=== PATIENT | female | born 1985 | race Caucasian/White ===

== ENCOUNTER 2017-02-11 15:11 | Emergency (ER) | payer OTHER ==
[2017-02-11 15:16] VITALS: BP 104/64; PULSE 73; TEMP 98.4; BMI 30.8
--- NOTE | 2017-02-11 16:35 | PDOC ---
History of Present Illness - General History Source: Patient Exam Limitations: No Limitations - History of Present Illness Initial Comments: 02/11/17 17:17 The patient is a 31 year old female with history of four UTI in one month who presents to the ED with complaints of lower abdominal pain for the past couple of days. The patient states the pain radiates up her abdomen as well and is accompanied with bilateral flank pain. She reports having a doctors appointment for her symptoms tomorrow but could not wait until then. She denies any fever, chills, nausea, vomiting, diarrhea, cough, shortness of breath, chest pain or any other urinary symptoms. LMP was January 28. <Fay Hidalgo - Last Filed: 02/11/17 20:07> <Anny Penn - Last Filed: 02/11/17 20:57> - General Chief Complaint: Pain Stated Complaint: ABD PAIN Time Seen by Provider: 02/11/17 16:34 Past History <Fay Hidalgo - Last Filed: 02/11/17 20:07> - Past Medical History Anemia: No Asthma: No Cancer: No Cardiac Disorders: No CVA: No COPD: No CHF: No Dementia: No Diabetes: No GI Disorders: No Disorders: No HTN: No Hypercholesterolemia: Yes Liver Disease: No Seizures: No Thyroid Disease: Yes - Psycho/Social/Smoking Cessation Hx Anxiety: No Suicidal Ideation: No Smoking History: Never smoked Have you smoked in the past 12 months: No Information on smoking cessation initiated: No Hx Alcohol Use: No Drug/Substance Use Hx: No Hx Substance Use Treatment: No <Anny Penn - Last Filed: 02/11/17 20:57> - Past Medical History Allergies/Adverse Reactions: Allergies Allergy/AdvReac Type Severity Reaction Status Date / Time No Known Allergies Allergy Verified 02/11/17 15:17 Home Medications: Ambulatory Orders NK [No Known Home Medication] 02/11/17 Review of Systems - Review of Systems Able to Perform ROS?: Yes Comments:: 02/11/17 17:17 CONSTITUTIONAL: Absent: fever, chills, diaphoresis, generalized weakness, malaise, loss of appetite HEENT: Absent: rhinorrhea, nasal congestion, throat pain, throat swelling, difficulty swallowing, mouth swelling, ear pain, eye pain, visual Changes CARDIOVASCULAR: Absent: chest pain, syncope, palpitations, irregular heart rate, lightheadedness , peripheral edema RESPIRATORY: Absent: cough, shortness of breath, dyspnea with exertion, orthopnea, wheezing, stridor, hemoptysis GASTROINTESTINAL: Present: suprapubic pain, diffuse abdominal pain Absent: abdominal distension, nausea, vomiting, diarrhea, constipation, melena, hematochezia GENITOURINARY: Absent: dysuria, frequency, urgency, hesitancy, hematuria, flank pain, genital pain MUSCULOSKELETAL: Absent: myalgia, arthralgia, joint swelling SKIN: Absent: rash, itching, pallor HEMATOLOGIC/IMMUNOLOGIC: Absent: easy bleeding, easy bruising, lymphadenopathy, frequent infections ENDOCRINE: Absent: unexplained weight gain, unexplained weight loss, heat intolerance, cold intolerance NEUROLOGIC: Absent: headache, focal weakness or paresthesias, dizziness, unsteady gait, seizure, mental status changes, bladder or bowel incontinence PSYCHIATRIC: Absent: anxiety, depression, suicidal or homicidal ideation, hallucinations. All Other Systems: Reviewed and Negative <Fay Hidalgo - Last Filed: 02/11/17 20:07> *Physical Exam - Vital Signs Last Vital Signs Temp Pulse Resp BP Pulse Ox 98.4 F 73 18 104/64 100 02/11/17 15:13 02/11/17 15:13 02/11/17 15:13 02/11/17 15:13 02/11/17 15:13 - Physical Exam Comments: 02/11/17 17:19 GENERAL: Well developed, well nourished. Awake and alert. No acute distress. HEENT: Normocephalic, atraumatic. PERRLA, EOMI. No conjunctival pallor. Sclera are non- icteric. Moist mucous membranes. Oropharynx is clear. NECK: Supple. Full ROM. No JVD. Carotid pulses 2+ and symmetric, without bruits. No thyromegaly. No lymphadenopathy. CARDIOVASCULAR: Regular rate and rhythm. No murmurs, rubs, or gallops. Distal pulses are 2+ and symmetric. PULMONARY: No evidence of respiratory distress. Lungs clear to auscultation bilaterally. No wheezing, rales or rhonchi. ABDOMINAL: Super pubic tenderness, bilateral CVA tenderness. Soft. Non-distended. No rebound or guarding. No organomegaly. Normoactive bowel sounds. MUSCULOSKELETAL Normal range of motion at all joints. No bony deformities or tenderness. No CVA tenderness. EXTREMITIES: No cyanosis. No clubbing. No edema. No calf tenderness. SKIN: Warm and dry. Normal capillary refill. No rashes. No jaundice. NEUROLOGICAL: Alert, awake, appropriate. Cranial nerves 2-12 intact. No deficits to light touch and temperature in face, upper extremities and lower extremities. No motor deficits in the in face, upper extremities and lower extremities. Normoreflexic in the upper and lower extremities. Normal speech. Toes are down-going bilaterally. Gait is normal without ataxia. PSYCHIATRIC: Cooperative. Good eye contact. Appropriate mood and affect. <Fay Hidalgo - Last Filed: 02/11/17 20:07> - Vital Signs Last Vital Signs Temp Pulse Resp BP Pulse Ox 98.4 F 73 18 104/64 100 02/11/17 15:13 02/11/17 15:13 02/11/17 15:13 02/11/17 15:13 02/11/17 15:13 <Anny Penn - Last Filed: 02/11/17 20:57> ED Treatment Course - LABORATORY CBC & Chemistry Diagram: 02/11/17 17:15 02/11/17 17:15 - RADIOLOGY Radiograph Interpretation: 02/11/17 20:07 Bladder ultrasound as reviewed by Dr. Kraft reports small left ovarian cyst, otherwise no acute pathology. <Fay Hidalgo - Last Filed: 02/11/17 20:07> - LABORATORY CBC & Chemistry Diagram: 02/11/17 17:15 02/11/17 17:15 <Anny Penn - Last Filed: 02/11/17 20:57> Medical Decision Making - Medical Decision Making 02/11/17 16:49 31 yo female reports 4 x uti in past month -has zaria givens MD at [facility] tomorrow but lucian discomfort was too great to wait to be seen -no fever,no vomiting,no diarrhea -ROS++ suprapubic pain nonsurgical abd exam plan-UA,UC preg test,cbc comp 02/11/17 20:12 CBC and chemistries are unremarkable. Patient is not . She has no urinary tract infection. Her ultrasound showed a small left ovarian cyst. Otherwise, a normal pelvic sonogram with no evidence of ovarian torsion or acute pathology Impression pelvic pain Plan patient already has an appointment with her doctor tomorrow <Anny Penn - Last Filed: 02/11/17 20:57> *DC/Admit/Observation/Transfer - Attestations Scribe Attestion: 02/11/17 17:20 Documentation prepared by Fay Hidalgo, acting as certified ophthalmic medical technician for Anny Penn MD. <Fay Hidalgo - Last Filed: 02/11/17 20:07> <Anny Penn - Last Filed: 02/11/17 20:57> Diagnosis at time of Disposition: Abdominal pain - Discharge Dispostion Disposition: HOME Condition at time of disposition: Good - Referrals Referrals: Cosmo Ochoa [Primary Care Provider] -
[2017-02-11 17:52] LABS: BASOPHIL 1.2 % (0-2.0); EOSINOPHIL 1.3 % (0-4.5); MCH 29.3 pg (25.7-33.7); MCHC 34.8 g/dl (32.0-36.0); MEAN CELL VOLUME 84.2 fl (80-96); MEAN PLT VOLUME 8.2 fl (7.5-11.1); PLATELET COUNT 258 K/MM3 (134-434); WHITE BLOOD COUNT 9.3 K/mm3 (4.0-10.0)
[2017-02-11 17:57] LABS: URINE APPEARANCE CLEAR; URINE BILIRUBIN NEGATIVE (NEGATIVE); URINE BLOOD NEGATIVE (NEGATIVE); URINE COLOR COLORLESS; URINE GLUCOSE (UA) NEGATIVE (NEGATIVE); URINE KETONE NEGATIVE (NEGATIVE); URINE NITRITE NEGATIVE (NEGATIVE); URINE PROTEIN NEGATIVE (NEGATIVE); URINE UROBILINOGEN NEGATIVE mg/dL (0.2-1.0)
[2017-02-11 18:07] LABS: URINE LEUK ESTERASE 2+ (NEGATIVE)
[2017-02-11 18:09] LABS: ANION GAP 5 (8-16); BILIRUBIN,TOTAL 0.3 mg/dL (0.2-1.0); CALCIUM 8.8 mg/dL (8.5-10.1); CO2 29 mmol/L (21-32); CREATININE 0.6 mg/dL (0.55-1.02); GLUCOSE,RANDOM 105 mg/dL (74-106)
[2017-02-11 18:10] LABS: URINE BACTERIA RARE /hpf (NONE SEEN); URINE MUCUS RARE; URINE RBC 1 /hpf (0-3); URINE WBC 2 /hpf (3-5)
[2017-02-11 18:12] LABS: ALK PHOS 81 U/L (45-117); SGOT/AST 20 U/L (15-37); SGPT/ALT 32 U/L (12-78)
== END 2017-02-11 20:20 | disposition home or self-care (01) ==
LOC: JER 15:11
DX: R10.30 Lower abdominal pain, unspecified (principal); Z87.440 Personal history of urinary (tract) infections
CPT/HCPCS: 36415; 76856-TC; 80053; 81003; 81015; 83690; 84703; 85025; 87086; 99284-25

== ENCOUNTER 2017-03-20 11:22 | Emergency (ER) | payer OTHER ==
[2017-03-20 11:27] VITALS: BP 103/41; PULSE 72; TEMP 98.4; BMI 29.0
--- NOTE | 2017-03-20 12:07 | PDOC ---
History of Present Illness - General Chief Complaint: Injury Stated Complaint: FALL/ SWOLLEN FOOT Time Seen by Provider: 03/20/17 11:41 History Source: Patient Exam Limitations: No Limitations - History of Present Illness Initial Comments: 03/20/17 12:02 Fell on right knee and twiisted foot x 1 week ago Timing/Duration: 1 week Severity: mild Associated Symptoms: denies: fever/chills, malaise Past History - Past Medical History Allergies/Adverse Reactions: Allergies Allergy/AdvReac Type Severity Reaction Status Date / Time No Known Allergies Allergy Verified 03/20/17 11:26 Home Medications: Ambulatory Orders NK [No Known Home Medication] 02/11/17 Anemia: No Asthma: No Cancer: No Cardiac Disorders: No CVA: No COPD: No CHF: No Dementia: No Diabetes: No GI Disorders: No Disorders: No HTN: No Hypercholesterolemia: Yes Liver Disease: No Seizures: No Thyroid Disease: Yes - Psycho/Social/Smoking Cessation Hx Anxiety: No Suicidal Ideation: No Smoking History: Never smoked Have you smoked in the past 12 months: No Hx Alcohol Use: No Drug/Substance Use Hx: No Substance Use Type: None Hx Substance Use Treatment: No Review of Systems - Review of Systems Constitutional: No: Symptoms Reported, Chills, Fever HEENTM: No: Symptoms Reported Respiratory: No: Symptoms reported Musculoskeletal: Yes: Joint Pain (right knee while walking; and right foot) Integumentary: No: Bruising, Erythema Neurological: No: Symptoms reported, Numbness, Paresthesia *Physical Exam - Vital Signs Last Vital Signs Temp Pulse Resp BP Pulse Ox 98.4 F 72 20 103/41 100 03/20/17 11:24 03/20/17 11:24 03/20/17 11:24 03/20/17 11:24 03/20/17 11:24 - Physical Exam General Appearance: Yes: Appropriately Dressed. No: Apparent Distress HEENT: positive: TMs Normal, Pharynx Normal Respiratory/Chest: positive: Lungs Clear Musculoskeletal: positive: Other (right knee= FROM, non tender, no STS; no joint laxity; right foot. mild STS to prox foot; Tender to medial MTs, ankle movement normal) ED Treatment Course - RADIOLOGY Radiology Studies Ordered: Category Date Time Status FOOT-RIGHT [RAD] Stat Radiology 03/20/17 11:54 Ordered Medical Decision Making - Medical Decision Making 03/20/17 12:07 no knee xray needed; right ankle = clear; will xray foot though *DC/Admit/Observation/Transfer Diagnosis at time of Disposition: Strain of right knee Qualifiers: Encounter type: initial encounter Qualified Code(s): S86.911A - Strain of unspecified muscle(s) and tendon(s) at lower leg level, right leg, initial encounter Strain of right foot Qualifiers: Encounter type: initial encounter Qualified Code(s): S96.911A - Strain of unspecified muscle and tendon at ankle and foot level, right foot, initial encounter - Discharge Dispostion Disposition: HOME Condition at time of disposition: Stable Admit: No - Referrals Referrals: Cosmo Ochoa [Primary Care Provider] - Davide Hernández MD [Staff Physician] - - Patient Instructions Additional Instructions: wear derian as needed to ankle / foot; see Dr Hernández 1 week if knee pain no better; p advil 400mg 3 times daily
== END 2017-03-20 13:24 | disposition home or self-care (01) ==
LOC: JERFT 11:22
DX: S86.811A Strain of other muscle(s) and tendon(s) at lower leg level, right leg, initial encounter (principal); S96.811A Strain of other specified muscles and tendons at ankle and foot level, right foot, initial encounter; W19.XXXA Unspecified fall, initial encounter; Y93.89 Activity, other specified; Y92.89 Other specified places as the place of occurrence of the external cause; Y99.8 Other external cause status
CPT/HCPCS: 73630-TC-RT; 99281-25

== ENCOUNTER 2017-06-03 12:53 | Emergency (ER) | payer OTHER ==
[2017-06-03 13:00] VITALS: BP 104/51; PULSE 72; TEMP 98.7; BMI 30.9
[2017-06-03 14:38] LABS: URINE APPEARANCE CLEAR; URINE BILIRUBIN NEGATIVE (NEGATIVE); URINE BLOOD NEGATIVE (NEGATIVE); URINE COLOR LTYELLOW; URINE GLUCOSE (UA) NEGATIVE (NEGATIVE); URINE KETONE NEGATIVE (NEGATIVE); URINE NITRITE NEGATIVE (NEGATIVE); URINE PROTEIN NEGATIVE (NEGATIVE); URINE UROBILINOGEN NEGATIVE mg/dL (0.2-1.0)
[2017-06-03] MEDS ORDERED: CEPHALEXIN MONOHYDRATE 500 MG CAPSULE (UD) PO ONE (14:50)
--- NOTE | 2017-06-03 14:50 | PDOC ---
History of Present Illness - General Chief Complaint: Cold Symptoms Stated Complaint: THROAT, R/O UTI, EARACHE Time Seen by Provider: 06/03/17 14:18 History Source: Patient Exam Limitations: No Limitations - History of Present Illness Travel History: No Initial Comments: 06/03/17 14:45 Mother came for evaluation of mild nausea, bilateral flank pain, and burning/ frequency and small amount urination for the past 2 days. States is felt feverish but did not take temperature. States had UTI 2 months ago and was treated with amoxicillin. Timing/Duration: reports: getting worse, changing over time Quality: reports: mild, fullness Abdominal Pain Onset Location: reports: suprapubic, flank Alleviating Factors: improves with: None Past History - Travel Traveled outside of the country in the last 30 days: No Close contact w/someone who was outside of country & ill: No - Past Medical History Allergies/Adverse Reactions: Allergies Allergy/AdvReac Type Severity Reaction Status Date / Time No Known Allergies Allergy Verified 06/03/17 13:00 Home Medications: Ambulatory Orders Cephalexin Monohydrate [Keflex -] 500 mg PO Q8H #15 capsule 06/03/17 Anemia: No Asthma: No Cancer: No Cardiac Disorders: No CVA: No COPD: No CHF: No DVT: No Dementia: No Diabetes: No GI Disorders: No Disorders: No HTN: No Hypercholesterolemia: Yes Liver Disease: No Seizures: No Thyroid Disease: Yes - Suicide/Smoking/Psychosocial Hx Smoking History: Never smoked Have you smoked in the past 12 months: No Information on smoking cessation initiated: No Hx Alcohol Use: No Drug/Substance Use Hx: No Substance Use Type: None Hx Substance Use Treatment: No Review of Systems - Review of Systems Able to Perform ROS?: Yes Is the patient limited Irish proficient: Yes Constitutional: Yes: Symptoms Reported, See HPI, Loss of Appetite, Malaise HEENTM: Yes: Symptoms Reported, See HPI, Nose Congestion Respiratory: Yes: See HPI ABD/GI: Yes: Symptoms Reported, See HPI, Abdominal Distended, Nausea, Vomiting : Yes: Symptoms Reported, See HPI, Burning, Dysuria, Frequency. No: Hematuria All Other Systems: Reviewed and Negative *Physical Exam - Vital Signs Last Vital Signs Temp Pulse Resp BP Pulse Ox 98.7 F 72 19 104/51 99 06/03/17 12:58 06/03/17 12:58 06/03/17 12:58 06/03/17 12:58 06/03/17 12:58 - Physical Exam General Appearance: Yes: Nourished, Appropriately Dressed, Apparent Distress, Mild Distress HEENT: positive: DAGOBERTO, Normal ENT Inspection, TMs Normal, Pharynx Normal Neck: positive: Tender, Supple, Lymphadenopathy (R), Lymphadenopathy (L) Respiratory/Chest: positive: Lungs Clear, Normal Breath Sounds Cardiovascular: positive: Regular Rhythm Gastrointestinal/Abdominal: positive: Tender (mild suprapubic ), Soft, Distended. 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 Will treat with Keflex due to strong hx. *DC/Admit/Observation/Transfer Diagnosis at time of Disposition: UTI (urinary tract infection) Qualifiers: Urinary tract infection type: acute cystitis Hematuria presence: without hematuria Qualified Code(s): N30.00 - Acute cystitis without hematuria - Discharge Dispostion Disposition: HOME Condition at time of disposition: Stable - Referrals Referrals: Cosmo Ochoa [Primary Care Provider] - - Patient Instructions Printed Discharge Instructions: DI for Urinary Tract Infection (UTI) Additional Instructions: Rest, drink lots of fluids: Teas, water, soups Avoid contact with others until fevers and symptoms resolved Lots of handwashing and good hygiene Continue [id number] medications for symptomatic relief Tylenol or Motrin for fever and pain Continue all of antibiotics until completed Followup with private physician in one week for repeat urinalysis/reevaluation Return to emergency department for worsened symptoms, fevers, dehydration - Post Discharge Activity Forms/Work/School Notes: Back to Work
[2017-06-03] MEDS ORDERED: CEPHALEXIN MONOHYDRATE 500 MG CAPSULE (UD) ONE (14:54)
[2017-06-03 18:17] LABS: URINE LEUK ESTERASE TRACE (NEGATIVE)
[2017-06-03 19:15] LABS: URINE RBC 0-2 /hpf (0-3)
[2017-06-03 19:16] LABS: URINE BACTERIA FEW /hpf (NEGATIVE)
== END 2017-06-03 15:02 | disposition home or self-care (01) ==
LOC: JERFT 12:53
DX: N30.00 Acute cystitis without hematuria (principal)
CPT/HCPCS: 81003; 81015; 84703; 87086; 99281-25

== ENCOUNTER 2017-08-16 12:06 | Emergency (ER) | payer OTHER ==
[2017-08-16 12:22] VITALS: BP 106/60; PULSE 75; TEMP 97.8; BMI 31.7
--- NOTE | 2017-08-16 14:36 | PDOC ---
History of Present Illness - General Chief Complaint: Cold Symptoms Stated Complaint: FEVER, THROAT PAIN Time Seen by Provider: 08/16/17 13:25 History Source: Patient Exam Limitations: No Limitations - History of Present Illness Initial Comments: 08/16/17 14:29 Patient is a 32-year-old female, no significant medical history currently on no medication presents with sore throat, body aches, fever. Son with strep. Patient had influenza 2 weeks ago was treated for Tamiflu Past Medical History: [Denies]. Allergies: No known allergies Medications: [None] Family History: Non-contributory Social History: Denies smoking, alcohol use, or IVDU Review of Systems GENERAL/CONSTITUTIONAL: [Fever. No weakness. No weight change.] HEAD, EYES, EARS, NOSE AND THROAT: [No change in vision. No ear pain or discharge. Sore throat ] CARDIOVASCULAR: [No chest pain or shortness of breath.] RESPIRATORY: [No cough, wheezing, or hemoptysis.] GASTROINTESTINAL: [No nausea, vomiting, diarrhea or constipation. No rectal bleeding.] GENITOURINARY: [No dysuria, frequency, or change in urination.] MUSCULOSKELETAL: [No joint or muscle swelling or pain. No neck or back pain.] SKIN AND BREASTS: [No rash or easy bruising.] NEUROLOGIC: [No headache, vertigo, loss of consciousness, or loss of sensation.] PSYCHIATRIC: [No depression or anxiety.] ENDOCRINE: [No increased thirst. No abnormal weight change.] HEMATOLOGIC/LYMPHATIC: [No anemia, easy bleeding, or history of blood clots.] ALLERGIC/IMMUNOLOGIC: [No hives or skin allergy. No latex allergy.] Physical Exam: GENERAL: [The patient is awake, alert, and fully oriented, in no acute distress. ] EYES: [Pupils equal, round and reactive to light, extraocular movements intact, sclera anicteric, conjunctiva clear.] ENT: [Ears normal, nares patent, oropharynx erythematous without exudates. Moist mucous membranes. No uvula deviation] NECK: [Normal range of motion, supple without lymphadenopathy, JVD, or masses.] LUNGS: [Breath sounds equal, clear to auscultation bilaterally. No wheezes, and no crackles.] HEART: [Regular rate and rhythm, normal S1 and S2 without murmur, rub or gallop. ] ABDOMEN: [Soft, nontender, normoactive bowel sounds. No guarding, no rebound. No masses. No bruising or abrasions] MUSCULOSKELETAL: [Normal range of motion, no edema. No clubbing or cyanosis. No cords, erythema, or tenderness. No CVA Tenderness with fist.] NEUROLOGICAL: [Cranial nerves II through XII grossly intact. Normal speech, normal gait.] SKIN: [Warm, Dry, normal turgor, no rashes or lesions noted.] 08/16/17 14:37 Past History - Past Medical History Allergies/Adverse Reactions: Allergies Allergy/AdvReac Type Severity Reaction Status Date / Time No Known Allergies Allergy Verified 08/16/17 12:19 Home Medications: Ambulatory Orders Acetaminophen [Tylenol -] 325 mg PO Q4H 08/16/17 Azithromycin [Zithromax 250mg Tablets -] 250 mg PO UTDICT #6 tab 08/16/17 Ibuprofen [Motrin -] 600 mg PO QID #28 tablet 08/16/17 Anemia: No Asthma: No Cancer: No Cardiac Disorders: No CVA: No COPD: No CHF: No DVT: No Dementia: No Diabetes: No GI Disorders: No Disorders: No HTN: No Hypercholesterolemia: Yes Liver Disease: No Seizures: No Thyroid Disease: Yes - Suicide/Smoking/Psychosocial Hx Smoking History: Never smoked Have you smoked in the past 12 months: No Hx Alcohol Use: No Drug/Substance Use Hx: No Substance Use Type: None Hx Substance Use Treatment: No *Physical Exam - Vital Signs Last Vital Signs Temp Pulse Resp BP Pulse Ox 97.8 F 75 18 106/60 100 08/16/17 12:20 08/16/17 12:20 08/16/17 12:20 08/16/17 12:20 08/16/17 12:20 ED Treatment Course - ADDITIONAL ORDERS Additional order review: 08/16/17 13:22 Group A Strep Rapid Antigen - Preliminary Throat Medical Decision Making - Medical Decision Making 08/16/17 14:36 A/P : Patient here for sore throat and fever, rapid strep is negative however his son with strep a. I will discharge patient home on azithromycin, Motrin for fever, increase fluids. I discussed the physical exam findings, ancillary test results and final diagnoses with the patient. I answered all of the patient's questions. The patient was satisfied with the care received and felt comfortable with the discharge plan and treatment plan. The patient will call to arrange follow-up and will return to the Emergency Department with any new, persistent or worsening symptoms. *DC/Admit/Observation/Transfer Diagnosis at time of Disposition: Exposure to strep throat Fever Qualifiers: Fever type: unspecified Qualified Code(s): R50.9 - Fever, unspecified - Discharge Dispostion Disposition: HOME Condition at time of disposition: Stable Admit: No - Prescriptions Prescriptions: Azithromycin [Zithromax 250mg Tablets -] 250 mg PO UTDICT #6 tab Ibuprofen [Motrin -] 600 mg PO QID #28 tablet - Referrals Referrals: Cosmo Ochoa [Primary Care Provider] - - Patient Instructions - Post Discharge Activity
== END 2017-08-16 14:53 | disposition home or self-care (01) ==
LOC: JERFT 12:06
DX: J02.9 Acute pharyngitis, unspecified (principal); Z20.818 Contact with and (suspected) exposure to other bacterial communicable diseases
CPT/HCPCS: 87070; 87430; 99281-25

== ENCOUNTER 2018-03-26 09:48 | Emergency (ER) | payer OTHER ==
[2018-03-26 10:02] VITALS: BP 102/60; PULSE 73; TEMP 98.3; BMI 32.1
--- NOTE | 2018-03-26 10:27 | PDOC ---
History of Present Illness - General Chief Complaint: Cold Symptoms Stated Complaint: COLD SYMPTOMS Time Seen by Provider: 03/26/18 10:08 History Source: Patient Exam Limitations: No Limitations - History of Present Illness Initial Comments: 03/26/18 15:35 32 yr female with no PMHX presents with c/o cough sore throat, Severity: reports: mild Past History - Past Medical History Allergies/Adverse Reactions: Allergies Allergy/AdvReac Type Severity Reaction Status Date / Time No Known Allergies Allergy Verified 03/26/18 09:58 Home Medications: Ambulatory Orders Fluticasone Prop 0.05% Nasal [Flonase -] 1 - 2 spray NS DAILY #1 spray.pump Anemia: No Asthma: No Cancer: No Cardiac Disorders: No CVA: No COPD: No CHF: No DVT: No Dementia: No Diabetes: No GI Disorders: No Disorders: No HTN: No Hypercholesterolemia: Yes Liver Disease: No Seizures: No Thyroid Disease: Yes - Suicide/Smoking/Psychosocial Hx Smoking History: Never smoked Have you smoked in the past 12 months: No Hx Alcohol Use: No Drug/Substance Use Hx: No Substance Use Type: None Hx Substance Use Treatment: No Review of Systems - Review of Systems Able to Perform ROS?: Yes Is the patient limited Ivorian proficient: No Constitutional: Yes: Symptoms Reported HEENTM: Yes: Symptoms Reported Respiratory: Yes: Symptoms reported *Physical Exam - Vital Signs Last Vital Signs Temp Pulse Resp BP Pulse Ox 98.3 F 73 18 102/60 97 03/26/18 09:56 03/26/18 09:56 03/26/18 09:56 03/26/18 09:56 03/26/18 09:56 - Physical Exam General Appearance: Yes: Nourished, Appropriately Dressed HEENT: positive: EOMI, DAGOBERTO, Nasal Congestion. negative: Pharyngeal Erythema, Tonsillar Exudate, Tonsillar Erythema Neck: positive: Supple. negative: Lymphadenopathy (R), Lymphadenopathy (L) Respiratory/Chest: positive: Lungs Clear, Normal Breath Sounds. 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, Fully Oriented, Alert, Normal Mood/ Affect Medical Decision Making - Medical Decision Making 03/27/18 18:12 cc: cough sore throat children with same symptoms no fever non toxic viral syndrome, nasal congestion *DC/Admit/Observation/Transfer Diagnosis at time of Disposition: Viral upper respiratory tract infection with cough - Discharge Dispostion Disposition: HOME Condition at time of disposition: Good - Prescriptions Prescriptions: Fluticasone Prop 0.05% Nasal [Flonase -] 1 - 2 spray NS DAILY #1 spray.pump - Referrals Referrals: Paul Sanchez [Primary Care Provider] - - Patient Instructions Printed Discharge Instructions: DI for Common Cold Additional Instructions: give pleanty of fluids to drink give honey on a teaspoon three times a day for cough use over the counter VICKS vapor rub to throat chest at bedtime use the Flonase nasal spray for congestion as directed follow with your primary care doctor if any worsening symptoms or return to the ER if any worse - Post Discharge Activity
== END 2018-03-26 10:46 | disposition home or self-care (01) ==
LOC: JERFT 09:48 → JER 09:48 → JERFT 10:46
DX: J06.9 Acute upper respiratory infection, unspecified (principal); E78.00 Pure hypercholesterolemia, unspecified
CPT/HCPCS: 99281-25

== ENCOUNTER 2018-12-20 02:38 | Emergency (ER) | payer OTHER | END 2018-12-20 05:40 | disposition home or self-care (01) | LOC: JER 02:38 ==

== ENCOUNTER 2019-03-16 06:55 | Inpatient (IN) | payer OTHER ==
[2019-03-16] MEDS ORDERED: DINOPROSTONE 10 MG VAGINAL SUPPOSITORY VG ONE (19:55)
--- NOTE | 2019-03-16 20:29 | HP ---
Admitting History and Physical - Admission Chief Complaint: Abdominal pain in History of Present Illness: 33 yo , @ 40 weeks gestation, EDC 03/15/19, admitted for induction of labor. History Source: Patient Limitations to Obtaining History: No Limitations - Past Medical History ...LMP: 06/14/19 ...: Yes ...: 2 ...Para: 1 - Past Surgical History Past Surgical History: Yes: None - Smoking History Smoking history: Never smoked Have you smoked in the past 12 months: No - Alcohol/Substance Use Hx Alcohol Use: No - Social History Usual Living Arrangement: Yes: With Spouse History of Recent Travel: No Home Medications - Allergies Allergies/Adverse Reactions: Allergies Allergy/AdvReac Type Severity Reaction Status Date / Time TAMIFLU Allergy Uncoded 02/20/19 18:43 - Home Medications Home Medications: Ambulatory Orders Vit No.129/Iron/Folic [ One Daily Tablet] 1 tab PO DAILY Family Disease History - Family Disease History Family History: Unremarkable Review of Systems - Review of Systems Constitutional: reports: No Symptoms Eyes: reports: No Symptoms HENT: reports: No Symptoms Neck: reports: No Symptoms Cardiovascular: reports: No Symptoms Respiratory: reports: No Symptoms Gastrointestinal: reports: No Symptoms Genitourinary: reports: Pain Breasts: reports: No Symptoms Reported Musculoskeletal: reports: No Symptoms Integumentary: reports: No Symptoms Neurological: reports: No Symptoms Endocrine: reports: No Symptoms Psychiatric: reports: No Symptoms Pain Intensity: 3 Physical Examination Constitutional: Yes: Well Nourished Eyes: Yes: Conjunctiva Clear HENT: Yes: Atraumatic Neck: Yes: Supple Cardiovascular: Yes: Regular Rate and Rhythm Respiratory: Yes: Regular Gastrointestinal: Yes: Normal Bowel Sounds Integumentary: Yes: WNL Wound/Incision: Yes: Well Approximated Neurological: Yes: Alert, Oriented Psychiatric: Yes: Alert, Oriented Problem List - Problems (1) 40 weeks gestation of Code(s): Z3A.40 - 40 WEEKS GESTATION OF Assessment/Plan 40 weeks gestation Cervidil induction NPO Reevaluate in 12 hours or before if indicated
[2019-03-16] MEDS: ELECTROLYTE-148 SOLN 1,000 ML IV SCH (20:30)
[2019-03-16 20:48] LABS: BASO % 0.6 % (0-2.0); EOS % 0.9 % (0-4.5); HEMATOCRIT 33.8 % (32.4-45.2); HEMOGLOBIN 11.5 GM/dL (10.7-15.3); MCH 29.6 pg (25.7-33.7); MCHC 34.1 g/dl (32.0-36.0); MEAN CELL VOLUME 86.8 fl (80-96); MEAN PLT VOLUME 7.9 fl (7.5-11.1); MONO % 5.9 % (3.8-10.2); NEUT % 69.6 % (42.8-82.8); PLATELET COUNT 197 K/MM3 (134-434); RBC 3.89 M/mm3 (3.60-5.2); RDW 15.6 % (11.6-15.6); WHITE BLOOD COUNT 8.2 K/mm3 (4.0-10.0)
[2019-03-16 21:02] LABS: INR 1.05 (0.83-1.09); PROTHROMBIN TIME (PATIENT) 12.4 SEC (9.7-13.0)
[2019-03-16 21:05] LABS: ACTIVATED PTT 27.1 SECONDS (25.2-36.5)
[2019-03-16 21:22] LABS: BLOOD UREA NITROGEN 11.8 mg/dL (7-18); CREATININE 0.4 mg/dL (0.55-1.3); POTASSIUM 4.5 mmol/L (3.5-5.1)
[2019-03-16 21:31] VITALS: BMI 38.1
[2019-03-17] MEDS ORDERED: BUTORPHANOL TARTRATE 2 MG/ML VIAL IVPUSH PRN (00:36)
[2019-03-17] MEDS ORDERED: PROMETHAZINE HCL 25 MG/1 ML VIAL IVPUSH ONE (00:37)
[2019-03-17] MEDS ORDERED: BUTORPHANOL TARTRATE 1 MG/ML VIAL ONE ×2 (01:03)
[2019-03-17] MEDS ORDERED: PROMETHAZINE HCL 25 MG/1 ML VIAL ONE (01:04)
[2019-03-17] MEDS: ELECTROLYTE-148 SOLN 1,000 ML IV SCH ×3 (08:34→19:45)
[2019-03-17] MEDS ORDERED: OXYTOCIN 30 UNITS in 0.9% NS 30 UNIT/500 ML INFUS.BAG IVPB SCH (11:15)
[2019-03-17] MEDS ORDERED: OXYTOCIN 30 UNITS in 0.9% NS 30 UNIT/500 ML INFUS.BAG IVPB ONE (13:19)
--- NOTE | 2019-03-17 19:37 | PN ---
Progress Note (short form) - Note Progress Note: Patient seen and evaluated, she's lying comfortably in bed. She's status post cervidil. FHR : Reassuring [place] : + occasional contractions. VE : /-2 A/P : S/P cervidil induction Analgesia as needed Pitocin augmentation Anticipate Problem List - Problems (1) 40 weeks gestation of Code(s): Z3A.40 - 40 WEEKS GESTATION OF
[2019-03-17] MEDS ORDERED: FENTANYL/BUPIVACAINE/NS/PF - PCEA - 50 ML DISP.SYRIN EP ONE (19:38)
--- NOTE | 2019-03-17 19:41 | PN ---
Progress Note (short form) - Note Progress Note: Patient seen and evaluated, she's lying in bed c/o moderate discomfort. She's on pitocin augmentation FHR : Reassuring [place] : + occasional contractions. VE : /-2 AROM clear A/P : S/P cervidil induction Epidural anesthesia Continue pitocin augmentation Anticipate Problem List - Problems (1) 40 weeks gestation of Code(s): Z3A.40 - 40 WEEKS GESTATION OF
[2019-03-17] MEDS ORDERED: NALOXONE HCL 0.4 MG/ML VIAL IVPUSH PRN (19:53)
[2019-03-17] MEDS ORDERED: BUPIVACAINE HCL/PF 2.5 MG/ML - 30 ML VIAL IJ ONE (19:56)
[2019-03-17] MEDS ORDERED: FENTANYL/BUPIVACAINE/NS/PF - PCEA - 50 ML DISP.SYRIN EP SCH (20:00)
[2019-03-18] MEDS ORDERED: OXYTOCIN 20 UNITS in 0.9% NS 20 UNIT/1,000 ML INFUS.BAG IV ONE ×2 (02:03→03:41)
[2019-03-18] MEDS ORDERED: BENZOCAINE 28 GM HEMORRHOIDAL OINTMENT TP PRN (02:20)
[2019-03-18] MEDS ORDERED: WITCH HAZEL 50% (TUCKS) 40 PAD/JAR PAD TP PRN (02:20)
[2019-03-18] MEDS ORDERED: METHYLERGONOVINE MALEATE 0.2 MG/1 ML AMP IM PRN (02:20)
[2019-03-18] MEDS ORDERED: BISACODYL 10 MG SUPP.RECT RC PRN (02:20)
[2019-03-18] MEDS ORDERED: BENZOCAINE 20% 57 GM BOTTLE TP PRN (02:20)
--- NOTE | 2019-03-18 02:25 | PN ---
Delivery - Delivery Vaginal Delivery: Spontaneous Type of Anesthesia: Epidural Episiotomy/Laceration: Midline EBL (cc): 300 Delivery, Single - Feeding Plan Initial Plan: Elected not to breastfeed exclusively throughout hospitalization Remarks - Remarks Remarks: Normal spontaneous vaginal delivery of a live infant boy over midline episiotomy. Nose / Oropharynx suctioned @ perineum. Nuchal cord x 2 released, clamped and cut. Baby handed to nurse. Placenta expelled spontaneously intact. Episiotomy repaired with 2.0 Chromic and 2.0 Biosyn. Mother in stable condition.
[2019-03-18] MEDS ORDERED: OXYTOCIN 20 UNITS in 0.9% NS 20 UNIT/1,000 ML INFUS.BAG IV SCH (02:30)
[2019-03-18] MEDS: IBUPROFEN 600 MG TABLET (FP) PO PRN ×5 (03:15→22:22)
[2019-03-18] MEDS ORDERED: IBUPROFEN 600 MG TABLET (FP) PO ONE (03:41)
[2019-03-18] MEDS: FERROUS SO4 325 MG TABLET (FP) PO SCH ×2 (09:19→22:22)
[2019-03-18] MEDS: PRENATAL VITAMINS W/ FOLIC ACID TABLET (FP) PO SCH (09:19)
[2019-03-18] MEDS: ACETAMINOPHEN 325 MG TABLET (FP) PO PRN ×4 (09:20→22:22)
[2019-03-18] MEDS ORDERED: DIPHTH,PERTUSS(ACELL),TET 0.5 ML DISP.SYRIN IM ONE (10:00)
[2019-03-19] MEDS: ACETAMINOPHEN 325 MG TABLET (FP) PO PRN ×4 (03:00→20:44)
[2019-03-19] MEDS: IBUPROFEN 600 MG TABLET (FP) PO PRN ×4 (03:01→20:44)
--- NOTE | 2019-03-19 06:15 | PN ---
Post Progress Note - Subjective Subjective: Pt doing well. No acute events overnight per nursing Resting comfortably in bed. Type of Delivery: Vital Signs: Vital Signs Temperature 97.6 F 03/18/19 20:52 Pulse Rate 85 03/18/19 20:52 Respiratory Rate 18 03/18/19 20:52 Blood Pressure 98/63 03/18/19 20:52 O2 Sat by Pulse Oximetry (%) 100 03/18/19 01:45 Uterus: Yes: Fundus Firm Incision: Yes: Dressing dry and intact Abdomen/GI: Yes: Abdomen soft Lochia: Yes: Rubra Extremities: Yes: Calves non-tender Perineum: Yes: Episiotomy Activity: Ambulating - Labs Labs: CBC WBC 8.2 K/mm3 (4.0-10.0) 03/16/19 20:00 RBC 3.89 M/mm3 (3.60-5.2) 03/16/19 20:00 Hgb 11.5 GM/dL (10.7-15.3) 03/16/19 20:00 Hct 33.8 % (32.4-45.2) D 03/16/19 20:00 MCV 86.8 fl (80-96) 03/16/19 20:00 MCH 29.6 pg (25.7-33.7) 03/16/19 20:00 MCHC 34.1 g/dl (32.0-36.0) 03/16/19 20:00 RDW 15.6 % (11.6-15.6) 03/16/19 20:00 Plt Count 197 K/MM3 (134-434) D 03/16/19 20:00 MPV 7.9 fl (7.5-11.1) 03/16/19 20:00 Absolute Neuts (auto) 5.7 K/mm3 (1.5-8.0) 03/16/19 20:00 Neutrophils % 69.6 % (42.8-82.8) 03/16/19 20:00 Lymphocytes % 23.0 % (8-40) D 03/16/19 20:00 Monocytes % 5.9 % (3.8-10.2) 03/16/19 20:00 Eosinophils % 0.9 % (0-4.5) 03/16/19 20:00 Basophils % 0.6 % (0-2.0) 03/16/19 20:00 Nucleated RBC % 0 % (0-0) 03/16/19 20:00 Problem List - Problems (1) Vaginal delivery Code(s): O80 - ENCOUNTER FOR FULL-TERM UNCOMPLICATED DELIVERY Assessment/Plan Regular diet PO pain meds await CBC routine care
[2019-03-19] MEDS: PRENATAL VITAMINS W/ FOLIC ACID TABLET (FP) PO SCH (09:17)
[2019-03-19] MEDS: FERROUS SO4 325 MG TABLET (FP) PO SCH ×2 (09:17→23:05)
[2019-03-19 09:21] LABS: BASO % 0.8 % (0-2.0); EOS % 1.8 % (0-4.5); HEMATOCRIT 28.8 % (32.4-45.2); HEMOGLOBIN 9.8 GM/dL (10.7-15.3); LYMPH % 27.8 % (8-40); MCH 29.9 pg (25.7-33.7); MCHC 34.2 g/dl (32.0-36.0); MEAN CELL VOLUME 87.3 fl (80-96); MEAN PLT VOLUME 7.9 fl (7.5-11.1); NEUT % 65.6 % (42.8-82.8); PLATELET COUNT 172 K/MM3 (134-434); RDW 15.9 % (11.6-15.6); WHITE BLOOD COUNT 8.3 K/mm3 (4.0-10.0)
[2019-03-19] MEDS ORDERED: DIPHTH,PERTUSS(ACELL),TET 0.5 ML DISP.SYRIN IM ONE (10:00)
[2019-03-19] MEDS ORDERED: SENNOSIDES/DOCUSATE COMBO (SENNA PLUS) TABLET (UD) PO PRN (22:00)
[2019-03-20] MEDS: IBUPROFEN 600 MG TABLET (FP) PO PRN ×3 (04:58→15:48)
[2019-03-20] MEDS: ACETAMINOPHEN 325 MG TABLET (FP) PO PRN ×3 (04:59→15:48)
--- NOTE | 2019-03-20 08:36 | DS ---
Physical Exam-CHIEF EMBALMER Vital Signs: Vital Signs Temperature 98.7 F 03/19/19 22:00 Pulse Rate 84 03/19/19 22:00 Respiratory Rate 18 03/19/19 22:00 Blood Pressure 110/66 03/19/19 22:00 O2 Sat by Pulse Oximetry (%) 100 03/18/19 01:45 Constitutional: Yes: Well Nourished, No Distress Eyes: Yes: Conjunctiva Clear HENT: Yes: Normocephalic Neck: Yes: Trachea Midline Cardiovascular: Yes: Regular Rate and Rhythm Respiratory: Yes: Regular Gastrointestinal: Yes: Soft Neurological: Yes: Alert, Oriented Psychiatric: Yes: Alert, Oriented Labs: CBC, BMP 03/19/19 08:10 03/16/19 20:00 Delivery - Delivery Vaginal Delivery: Spontaneous Type of Anesthesia: Epidural Episiotomy/Laceration: Midline EBL (cc): 300 Delivery, Single - Stages of Labor Date 1st Stage Initiatied: 03/17/19 Time 1st Stage Initiated: 19:30 Date 2nd Stage Initiated: 03/18/19 Time 2nd Stage Initiated: 01:20 Date of Delivery: 03/18/19 Time of Delivery: 01:58 Time Placenta Delivered: 02:05 Placenta: Yes: Spontaneous - Condition of Healthcare Account Manager/Survey Crew Chief Present: No Gender: Male Weight: 8 lb 3 oz Position: Right, OA Total Hours ROM (Hrs/Mins): 6h28m - 1 Minute Total Score: 9 5 Minutes Total Score: 9 - [place] Feeding Plan Initial Plan: Elected not to breastfeed exclusively throughout hospitalization Discharge Summary Current Active Problems 40 weeks gestation of (Acute) Vaginal delivery (Acute) Hospital Course: Pt admitted for induction of labor on 03/16/2019. She underwent a normal on . She had an post course complicated only by anemia, she was maintained on vitamins . She was discharged home on post day 2. - Instructions - Home Medications Comprehensive Discharge Medication List: Ambulatory Orders Vit No.129/Iron/Folic [ One Daily Tablet] 1 tab PO DAILY
[2019-03-20] MEDS: PRENATAL VITAMINS W/ FOLIC ACID TABLET (FP) PO SCH (09:51)
[2019-03-20] MEDS: FERROUS SO4 325 MG TABLET (FP) PO SCH (09:51)
[2019-03-20 10:32] VITALS: BP 119/62; PULSE 73; TEMP 98
== END 2019-03-20 17:00 | disposition home or self-care (01) | DRG 560 ==
LOC: JLDR 06:55 → J3W 03-18 03:55
PROVIDERS: ADMIT Obstetrics & Gynecology; ATTEND Obstetrics & Gynecology
PROC: 3E0P7VZ Introduction of Hormone into Female Reproductive, Via Natural or Artificial Opening (ICD-10-PCS; 2019-03-16)
PROC: 10E0XZZ Delivery of Products of Conception, External Approach (ICD-10-PCS; principal; 2019-03-17)
PROC: 0W8NXZZ Division of Female Perineum, External Approach (ICD-10-PCS; 2019-03-17)
PROC: 3E0R3BZ Introduction of Anesthetic Agent into Spinal Canal, Percutaneous Approach (ICD-10-PCS; 2019-03-17)
DX: O48.0 Post-term pregnancy (principal); O69.81X0 Labor and delivery complicated by cord around neck, without compression, not applicable or unspecified; Z3A.40 40 weeks gestation of pregnancy; Z37.0 Single live birth
CPT/HCPCS: 36415; 59409; 80048; 85025; 85610; 85730; 86593; 86850; 86900; 86901; 90715

== ENCOUNTER 2020-03-09 10:26 | Emergency (ER) | payer OTHER ==
[2020-03-09 10:43] VITALS: BP 101/68; PULSE 79; TEMP 97.8; BMI 33.2
--- NOTE | 2020-03-09 11:04 | PDOC ---
*Physical Exam - Vital Signs Last Vital Signs Temp Pulse Resp BP Pulse Ox 97.8 F 79 16 101/68 99 03/09/20 10:39 03/09/20 10:39 03/09/20 10:39 03/09/20 10:39 03/09/20 10:39 - Physical Exam 03/09/20 11:04 The patient was examined by [ROSIBEL Zuniga] under my direct supervision. I personally evaluated the patient. I concur with the above findings and the plan of care. Discharge - Discharge Information Problems reviewed: Yes Clinical Impression/Diagnosis: Uterine prolapse Condition: Good Disposition: HOME - Follow up/Referral Referrals: Jaycee Sanchez MD [Primary Care Provider] - - Patient Discharge Instructions Patient Printed Discharge Instructions: DI for Uterine Prolapse Additional Instructions: Please call your BRAKE OPERATOR HELPER this week to make appointment for management of your prolapse - Post Discharge Activity
--- NOTE | 2020-03-09 11:06 | PDOC ---
History of Present Illness - General Chief Complaint: Vaginal Sxs Stated Complaint: SENT BY PCP ([facility]FECTION) Time Seen by Provider: 03/09/20 10:46 History Source: Patient - History of Present Illness Timing/Duration: reports: other Past History - Medical History Allergies/Adverse Reactions: Allergies Allergy/AdvReac Type Severity Reaction Status Date / Time atorvastatin [From Lipitor] Allergy Verified 03/17/19 08:53 oseltamivir Allergy Verified 03/16/19 20:24 TAMIFLU Allergy Uncoded 03/17/19 05:35 Home Medications: Ambulatory Orders Vit No.129/Iron/Folic [ One Daily Tablet] 1 tab PO DAILY 02/20/19 Ibuprofen [Motrin -] 600 mg PO QID PRN #28 tablet 03/20/19 Anemia: No Asthma: No Cancer: No Cardiac Disorders: No CVA: No COPD: No CHF: No DVT: No Dementia: No Diabetes: No GI Disorders: No Disorders: No HTN: No Hypercholesterolemia: Yes Liver Disease: No Seizures: No Thyroid Disease: No - Reproductive History Is Patient Now?: No Therapeutic (s) & number: No - Immunization History Immunization Up to Date: Yes - Psycho-Social/Smoking History Smoking History: Never smoked Have you smoked in the past 12 months: No Information on smoking cessation initiated: No - Substance Abuse Hx (Audit-C & DAST Scrn) How often the patient has a drink containing alcohol: Never Score: In Men: 4 or > Positive; In Women: 3 or > Positive: 0 Screen Result (Pos requires Nsg. Audit-10AR): Negative Review of Systems - Review of Systems Constitutional: No: Chills, Fever ABD/GI: No: Nausea, Vomiting, Abdominal cramping : Yes: Dysuria, Discharge. No: Flank Pain, Hematuria *Physical Exam - Vital Signs Last Vital Signs Temp Pulse Resp BP Pulse Ox 97.8 F 79 16 101/68 99 03/09/20 10:39 03/09/20 10:39 03/09/20 10:39 03/09/20 10:39 03/09/20 10:39 - Physical Exam General Appearance: Yes: Appropriately Dressed, Other. No: Apparent Distress Neck: positive: Supple Respiratory/Chest: negative: Respiratory Distress Female Pelvic Exam: positive: normal adnexa, other (uterus visualized at intraoitus, scant mucoid discharge in vault, no cmt/adnexal ttp, no lesions). negative: CMT, vaginal bleeding Gastrointestinal/Abdominal: positive: Normal Bowel Sounds, Soft. negative: Tender, Distended, Guarding, Rebound Musculoskeletal: negative: CVA Tenderness Integumentary: positive: Dry, Warm Neurologic: positive: Fully Oriented, Alert, Normal Mood/Affect Medical Decision Making - Medical Decision Making 03/09/20 11:59 34-year-old female multipara, here with intermittent vaginal discharge with itching and discomfort that started 3 months ago. S/p spon AB 11 months ago. Pt has been evaluated multiple times in urgent care and usually prescribed medications for yeast infection. Currently on fluconazole for 10 days and also uses topical clotrimazole. If symptoms are not improving and 2 days ago noticed that "My uterus is out" w/ mild difficulty urinating. States when her uterus comes out she uses her fingers to push it back in place. No abd pain, n/v/f/c see exam Uterine prolapse w/ irritative urinary sxs Appears to be stage 2 on exam UA w/ 1+ le, 12 wbc and 101 nazario, will hold off on treating and wait for urine culture as urinary symptoms most likely secondary to uterine prolapse versus true UTI STD cxs sent Pt to f/u w/ INSPECTION MACHINE TENDER for management as discussed Discharge - Discharge Information Problems reviewed: Yes Clinical Impression/Diagnosis: Uterine prolapse Condition: Good Disposition: HOME - Follow up/Referral Referrals: Jaycee Sanchez MD [Primary Care Provider] - - Patient Discharge Instructions Patient Printed Discharge Instructions: DI for Uterine Prolapse Additional Instructions: Please call your INSPECTION MACHINE TENDER this week to make appointment for management of your prolapse - Post Discharge Activity
[2020-03-09 11:47] LABS: EPI CELLS 22 /uL (0-25.1); HCG,QUALITATIVE URINE Negative; HYALINE CASTS 0 /uL (0-3.1); URINE APPEARANCE CLEAR; URINE BACTERIA 101 /uL (0-1359); URINE BILIRUBIN NEGATIVE (NEGATIVE); URINE COLOR YELLOW; URINE GLUCOSE (UA) NEGATIVE (NEGATIVE); URINE KETONE NEGATIVE (NEGATIVE); URINE LEUK ESTERASE 1+ (NEGATIVE); URINE NITRITE NEGATIVE (NEGATIVE); URINE PROTEIN NEGATIVE (NEGATIVE); URINE RBC 7 /uL (0-23.9); URINE UROBILINOGEN 0.2 mg/dL (0.2-1.0); URINE WBC 17 /uL (0-25.8)
== END 2020-03-09 12:30 | disposition home or self-care (01) ==
LOC: JER 10:26
DX: N81.4 Uterovaginal prolapse, unspecified (principal)
CPT/HCPCS: 36415; 81003; 84703; 87086; 87491; 87591; 99283-25

== ENCOUNTER 2021-05-30 17:52 | Emergency (ER) | payer OTHER ==
[2021-05-30 18:00] VITALS: BMI 33.6
[2021-05-30] MEDS ORDERED: ACETAMINOPHEN 500 MG TABLET (FP) PO ONE (18:47)
[2021-05-30] MEDS ORDERED: ACETAMINOPHEN 325 MG TABLET (FP) ONE (18:49)
[2021-05-30] MEDS ORDERED: SODIUM CHLORIDE 1,000 ML IV STA (19:02)
[2021-05-30] MEDS ORDERED: ACETAMINOPHEN 1000 MG/100 ML BAG IVPB ONE (19:29)
[2021-05-30] MEDS ORDERED: ACETAMINOPHEN INJECTION 100 ML IVPB ONE (19:47)
[2021-05-30 20:23] LABS: BASO % 0.2 % (0-2.0); EOS % 1.5 % (0-4.5); HEMATOCRIT 39.5 % (32.4-45.2); LYMPH % 15.3 % (8-40); MCHC 35.4 g/dl (32.0-36.0); MEAN PLT VOLUME 7.8 fl (7.5-11.1); MONO % 4.8 % (3.8-10.2); NEUT % 78.2 % (42.8-82.8); PLATELET COUNT 277 10^3/uL (134-434); RBC 4.82 M/mm3 (3.60-5.2); WHITE BLOOD COUNT 10.7 K/mm3 (4.0-10.0)
[2021-05-30 20:24] LABS: PH,URINE 7.5 (5.0-8.0); URINE APPEARANCE CLEAR; URINE BILIRUBIN NEGATIVE (NEGATIVE); URINE COLOR YELLOW; URINE GLUCOSE (UA) NEGATIVE (NEGATIVE); URINE KETONE NEGATIVE (NEGATIVE); URINE LEUK ESTERASE NEGATIVE (NEGATIVE); URINE NITRITE NEGATIVE (NEGATIVE); URINE PROTEIN NEGATIVE (NEGATIVE); URINE UROBILINOGEN 0.2 mg/dL (0.2-1.0)
[2021-05-30 20:27] LABS: HCG,QUALITATIVE URINE Negative
[2021-05-30 21:09] LABS: ALBUMIN 4.4 g/dl (3.4-5.0); ALK PHOS 105 U/L (45-117); ANION GAP 7 MMOL/L (8-16); BILIRUBIN,TOTAL 0.4 mg/dL (0.2-1); BLOOD UREA NITROGEN 10.3 mg/dL (7-18); CALCIUM 9.7 mg/dL (8.5-10.1); CHLORIDE 104 mmol/L (98-107); CO2 27 mmol/L (21-32); CREATININE 0.7 mg/dL (0.55-1.3); GLUCOSE,RANDOM 141 mg/dL (74-106); SGOT/AST 14 U/L (15-37); SGPT/ALT 27 U/L (13-61); SODIUM 138 mmol/L (136-145); TOT PROT 8.6 g/dl (6.4-8.2)
[2021-05-30] MEDS ORDERED: KETOROLAC TROMETHAMINE 30 MG/1 ML VIAL IM ONE (21:35)
[2021-05-30 23:24] VITALS: BP 99/61; PULSE 77; TEMP 98.5
[2021-05-31] MEDS ORDERED: KETOROLAC TROMETHAMINE 30 MG/1 ML VIAL IVPUSH ONE (00:15)
[2021-05-31] MEDS ORDERED: KETOROLAC TROMETHAMINE 30 MG/1 ML VIAL ONE (00:17)
== END 2021-05-31 00:26 | disposition home or self-care (01) ==
LOC: JER 17:52
PROC: 3E0233Z Introduction of Anti-inflammatory into Muscle, Percutaneous Approach (ICD-10-PCS; principal; 2021-05-30)
PROC: 3E0333Z Introduction of Anti-inflammatory into Peripheral Vein, Percutaneous Approach (ICD-10-PCS; 2021-05-30)
DX: N83.202 Unspecified ovarian cyst, left side (principal)
CPT/HCPCS: 36415; 71046-TC-FY; 74177-TC; 76830-TC; 80053; 81003; 84484; 84703; 85025; 87040; 87086; 93005; 93010; 96372; 96374; 99285-25; C9803-CS; Q9967; U0003; U0005

== ENCOUNTER 2021-09-25 01:39 | Emergency (ER) | payer OTHER ==
[2021-09-25 02:06] VITALS: BP 115/79; PULSE 105; TEMP 97.8; BMI 34.0
[2021-09-25] MEDS ORDERED: KETOROLAC TROMETHAMINE 30 MG/1 ML VIAL IM ONE (02:37)
[2021-09-25] MEDS ORDERED: ACETAMINOPHEN 325 MG TABLET (FP) PO ONE (02:37)
[2021-09-25] MEDS ORDERED: KETOROLAC TROMETHAMINE 30 MG/1 ML VIAL ONE (02:59)
[2021-09-25] MEDS ORDERED: ACETAMINOPHEN 325 MG TABLET (FP) ONE (02:59)
[2021-09-25 03:41] LABS: EPI CELLS 22 /uL (0-25.1); HYALINE CASTS 1 /uL (0-3.1); URINE APPEARANCE CLEAR; URINE BACTERIA 703 /uL (0-1359); URINE BILIRUBIN NEGATIVE (NEGATIVE); URINE COLOR YELLOW; URINE GLUCOSE (UA) NEGATIVE (NEGATIVE); URINE KETONE NEGATIVE (NEGATIVE); URINE LEUK ESTERASE 2+ (NEGATIVE); URINE NITRITE NEGATIVE (NEGATIVE); URINE PROTEIN NEGATIVE (NEGATIVE); URINE RBC 24 /uL (0-23.9); URINE UROBILINOGEN 0.2 mg/dL (0.2-1.0); URINE WBC 81 /uL (0-25.8)
[2021-09-25] MEDS ORDERED: CEPHALEXIN MONOHYDRATE 500 MG CAPSULE (UD) PO ONE (04:15)
[2021-09-25] MEDS ORDERED: CEPHALEXIN MONOHYDRATE 500 MG CAPSULE (UD) ONE (04:38)
== END 2021-09-25 04:50 | disposition home or self-care (01) ==
LOC: JER 01:39
PROC: 3E023GC Introduction of Other Therapeutic Substance into Muscle, Percutaneous Approach (ICD-10-PCS; principal; 2021-09-25)
DX: N39.0 Urinary tract infection, site not specified (principal); R51.9 Headache, unspecified
CPT/HCPCS: 81003; 87086; 93005; 93010; 99284-25

== ENCOUNTER 2023-06-25 17:59 | Emergency (ER) | payer OTHER ==
[2023-06-25 18:27] VITALS: BP 162/65; PULSE 78; RESP 16; TEMP 98.2; BMI 34.0
== END 2023-06-25 20:44 | disposition home or self-care (01) ==
LOC: JERFT 17:59
DX: S93.601A Unspecified sprain of right foot, initial encounter (principal); S93.401A Sprain of unspecified ligament of right ankle, initial encounter; W01.0XXA Fall on same level from slipping, tripping and stumbling without subsequent striking against object, initial encounter; Y93.01 Activity, walking, marching and hiking
CPT/HCPCS: 73610-TC-RT-FY; 73630-TC-RT-FY; 99283-25

== ENCOUNTER 2023-07-15 22:26 | Emergency (ER) | payer OTHER ==
[2023-07-15 22:33] VITALS: BP 106/62; PULSE 80; RESP 20; TEMP 97.5; BMI 34.0
[2023-07-15 22:46] LABS: EPI CELLS 9 /uL (0-25.1); HYALINE CASTS 1 /uL (0-3.1); URINE APPEARANCE CLEAR; URINE BACTERIA 432 /uL (0-1359); URINE BILIRUBIN NEGATIVE (NEGATIVE); URINE COLOR YELLOW; URINE GLUCOSE (UA) NEGATIVE (NEGATIVE); URINE KETONE NEGATIVE (NEGATIVE); URINE LEUK ESTERASE 1+ (NEGATIVE); URINE NITRITE NEGATIVE (NEGATIVE); URINE PROTEIN NEGATIVE (NEGATIVE); URINE UROBILINOGEN 0.2 mg/dL (0.2-1.0); URINE WBC 113 /uL (0-25.8)
[2023-07-15 22:50] LABS: HCG,QUALITATIVE URINE Negative
[2023-07-15 23:25] LABS: YEAST NONE SEEN (NEGATIVE)
[2023-07-16 00:28] LABS: BASO % 0.6 % (0-2.0); EOS % 1.2 % (0-4.5); HEMATOCRIT 36.7 % (32.4-45.2); HEMOGLOBIN 12.2 GM/dL (10.7-15.3); LYMPH % 29.7 % (8-40); MCH 28.1 pg (25.7-33.7); MCHC 33.4 g/dl (32.0-36.0); MEAN CELL VOLUME 84.4 fl (80-96); MEAN PLT VOLUME 8.7 fl (7.5-11.1); MONO % 5.7 % (3.8-10.2); NEUT % 62.8 % (42.8-82.8); PLATELET COUNT 294 10^3/uL (134-434); RBC 4.35 M/mm3 (3.60-5.2); RDW 14.6 % (11.6-15.6); WHITE BLOOD COUNT 10.2 K/mm3 (4.0-10.0)
[2023-07-16] MEDS ORDERED: SODIUM CHLORIDE 0.9% 500 ML INFUS.BAG IV ONE (00:32)
[2023-07-16] MEDS ORDERED: KETOROLAC TROMETHAMINE 30 MG/1 ML VIAL IVPUSH ONE (00:32)
[2023-07-16] MEDS ORDERED: KETOROLAC TROMETHAMINE 30 MG/1 ML VIAL ONE (00:47)
[2023-07-16 00:55] LABS: ALBUMIN 3.3 g/dl (3.4-5.0); CALCIUM 8.9 mg/dL (8.5-10.1)
[2023-07-16 00:56] LABS: BLOOD UREA NITROGEN 11.2 mg/dL (7-18)
[2023-07-16 00:58] LABS: CREATININE 0.8 mg/dL (0.55-1.3)
[2023-07-16 01:00] LABS: BILIRUBIN,TOTAL 0.2 mg/dL (0.2-1); TOT PROT 7.2 g/dl (6.4-8.2)
[2023-07-16] MEDS ORDERED: ACETAMINOPHEN 1000 MG/100 ML BAG IVPB ONE (05:37)
[2023-07-16] MEDS ORDERED: ACETAMINOPHEN 500 MG TABLET (FP) PO ONE (05:44)
[2023-07-16] MEDS ORDERED: ACETAMINOPHEN 325 MG TABLET (FP) ONE (05:57)
== END 2023-07-16 06:25 | disposition home or self-care (01) ==
LOC: JER 22:26
PROC: 3E0333Z Introduction of Anti-inflammatory into Peripheral Vein, Percutaneous Approach (ICD-10-PCS; principal; 2023-07-16)
DX: R10.31 Right lower quadrant pain (principal); N39.0 Urinary tract infection, site not specified
CPT/HCPCS: 36415; 74177-TC; 76830-TC; 80053; 81003; 84703; 85025; 87086; 96374; 99285-25; Q9967